=== PATIENT | male | born 1970 | race Caucasian/White ===

== ENCOUNTER 2016-10-10 18:16 | Emergency (ER) | payer SELFPAY ==
[~2016-10-10] VITALS: Ht 172.7 cm; Wt 68.0 kg
[~2016-10-10 18:16] MED LIST: Z.0.NO CURRENT MEDS
[2016-10-10 18:18] VITALS: BP 145/95; PULSE 71; RESP 16; TEMP 98.4; O2SAT 99
[2016-10-10] MEDS ORDERED: SODIUM CHLOR 0.9% 1000 ML INJ 1,000 ML IV SCH (18:48)
[2016-10-10] MEDS ORDERED: SODIUM CHLORIDE 0.9% FLUSH 10 ML FLUSH IV FLUSH PRN (19:00)
[2016-10-10] MEDS ORDERED: ALUMINUM/MAGNESIUM/SIMETH 30 ML CUP PO ONE (19:00)
[2016-10-10] MEDS ORDERED: LIDOCAINE VISCOUS 2% SOLN 15 ML UDC PO ONE (19:00)
[2016-10-10] MEDS ORDERED: PANTOPRAZOLE SODIUM 40 MG VIAL IVP ONE (19:00)
--- NOTE | 2016-10-10 19:02 | PD ---
HPI Chief Complaint: Abdominal Pain Time Seen by Provider: 18:33 Travel History International Travel<30 days: No Contact w/Intl Traveler<30days: No Traveled to known affect area: No History of Present Illness HPI 46-year-old male here for evaluation of abdominal pain/bloating/indigestion. Patient reports symptoms have been going on for last couple of months. States that his pain is mainly in his epigastric area and radiates up his chest. Pain is sometimes worse after eating. He denies history of cardiac disease. Patient also reports that for the past several months he has had intermittent right red blood per rectum. He denies rectal pain. No family history of cardiac disease. No known family history of colon cancer. He drinks about 4-6 beers daily. He does not smoke. [facility] Past Medical History Medical History: Denies Significant Hx Diminished Hearing: No Past Surgical History Tonsillectomy: Yes Social History Alcohol Use: Yes (6 BEERS/DAY) Tobacco Use: No Substance Use: No Allergies-Medications (Allergen,Severity, Reaction): Coded Allergies: Amoxicillin (Verified Allergy, Severe, HIVES, 10/10/16) Penicillin (Verified Allergy, Severe, HIVES, 10/10/16) Reported Meds & Prescriptions Reported Meds & Active Scripts Active No Active Prescriptions or Reported Medications Review of Systems Except as stated in HPI: all other systems reviewed are Neg Physical Exam Narrative GENERAL: Well-developed, well-nourished, comfortable, no acute distress. SKIN: Focused skin assessment warm/dry. HEAD: Atraumatic. Normocephalic. EYES: Pupils equal and round. No scleral icterus. No injection or drainage. ENT: Mucous membranes pink and moist. NECK: Trachea midline. No JVD. CARDIOVASCULAR: Regular rate and rhythm. No murmur appreciated. RESPIRATORY: No accessory muscle use. Clear to auscultation. Breath sounds equal bilaterally. GASTROINTESTINAL: Abdomen soft, nondistended. Mild epigastric tenderness without peritoneal signs. Rest of abdomen is soft and nontender. Normal bowel sounds. No hernias. RECTUM: No masses, no fissures, no hemorrhoids, heme- negative brown stool. MUSCULOSKELETAL: No obvious deformities. No clubbing. No cyanosis. No edema. NEUROLOGICAL: Awake and alert. No obvious cranial nerve deficits. Motor grossly within normal limits. Normal speech. PSYCHIATRIC: Appropriate mood and affect; insight and judgment normal. Data Data Last Documented VS Vital Signs Date Time Temp Pulse Resp B/P Pulse Ox O2 Delivery O2 Flow Rate FiO2 10/10/16 19:23 67 18 150/102 97 Room Air 10/10/16 18:18 98.4 Orders Urinalysis - C+S If Indicated (10/10/16 18:18) Complete Blood Count With Diff (10/10/16 18:48) Comprehensive Metabolic Panel (10/10/16 18:48) Lipase (10/10/16 18:48) Prothrombin Time / Inr (Pt) (10/10/16 18:48) Act Partial Throm Time (Ptt) (10/10/16 18:48) Ct Abd/Pel W Iv Contrast(Rout) (10/10/16 18:48) Iv Access Insert/Monitor (10/10/16 18:48) Ecg Monitoring (10/10/16 18:48) Oximetry (10/10/16 18:48) Pantoprazole Inj (Protonix Inj) (10/10/16 19:00) Sodium Chlor 0.9% 1000 Ml Inj (Ns 1000 M (10/10/16 18:48) Sodium Chloride 0.9% Flush (Ns Flush) (10/10/16 19:00) Electrocardiogram (10/10/16 18:48) Al-Mag Hy-Si 40-40-4 Mg/Ml Liq (Mag-Al P (10/10/16 19:00) Lidocaine 2% Viscous (Xylocaine 2% Visco (10/10/16 19:00) Ckmb (Isoenzyme) Profile (10/10/16 18:48) Troponin I (10/10/16 18:48) CKMB (10/10/16 19:05) CKMB% (10/10/16 19:05) Iohexol 350 Inj (Omnipaque 350 Inj) (10/10/16 19:49) Labs Laboratory Tests Test 10/10/16 10/10/16 19:05 20:50 White Blood Count 9.1 TH/MM3 Red Blood Count 4.36 MIL/MM3 Hemoglobin 14.2 GM/DL Hematocrit 40.6 % Mean Corpuscular Volume 93.1 FL Mean Corpuscular Hemoglobin 32.7 PG Mean Corpuscular Hemoglobin 35.1 % Concent Red Cell Distribution Width 12.0 % Platelet Count 206 TH/MM3 Mean Platelet Volume 8.1 FL Neutrophils (%) (Auto) 71.6 % Lymphocytes (%) (Auto) 18.7 % Monocytes (%) (Auto) 6.3 % Eosinophils (%) (Auto) 2.8 % Basophils (%) (Auto) 0.6 % Neutrophils # (Auto) 6.4 TH/MM3 Lymphocytes # (Auto) 1.7 TH/MM3 Monocytes # (Auto) 0.6 TH/MM3 Eosinophils # (Auto) 0.3 TH/MM3 Basophils # (Auto) 0.1 TH/MM3 CBC Comment DIFF FINAL Differential Comment Prothrombin Time 11.1 SEC Prothromb Time International 1.0 RATIO Ratio Activated Partial 25.2 SEC Thromboplast Time Sodium Level 142 MEQ/L Potassium Level 4.1 MEQ/L Chloride Level 105 MEQ/L Carbon Dioxide Level 26.8 MEQ/L Anion Gap 10 MEQ/L Blood Urea Nitrogen 16 MG/DL Creatinine 0.84 MG/DL Estimat Glomerular Filtration 98 ML/MIN Rate Random Glucose 92 MG/DL Calcium Level 8.6 MG/DL Total Bilirubin 0.6 MG/DL Aspartate Amino Transf 14 U/L (AST/SGOT) Alanine Aminotransferase 20 U/L (ALT/SGPT) Alkaline Phosphatase 60 U/L Total Creatine Kinase 103 U/L Creatine Kinase MB 1.1 NG/ML Troponin I LESS THAN 0.02 NG/ML Total Protein 7.0 GM/DL Albumin 3.9 GM/DL Lipase 159 U/L Urine Color YELLOW Urine Turbidity CLEAR Urine pH 6.5 Urine Specific [place] 1.030 Urine Protein NEG mg/dL Urine Glucose (UA) NEG mg/dL Urine Ketones NEG mg/dL Urine Occult Blood NEG Urine Nitrite NEG Urine Bilirubin NEG Urine Leukocyte Esterase NEG Urine Squamous Epithelial 0-5 /hpf Cells Microscopic Urinalysis Comment CULT NOT INDICATED MDM Medical Decision Making Medical Screen Exam Complete: Yes Emergency Medical Condition: Yes Interpretation(s) EKG: Sinus, rate 62, normal axis, normal intervals, no acute ischemic abnormality. Differential Diagnosis Gastritis, peptic ulcer disease, pancreatitis, hepatobiliary disease, ACS less likely, hemorrhoids, colon CA, GERD Narrative Course Vital signs show heart rate 71, blood pressure 145/95, pulse ox 99% on room air , oral temp of 98.4F. CBC is unremarkable. CMP is unremarkable. Lipase is 159. Cardiac enzymes are negative. UA is not suggestive of UTI. CT abdomen pelvis: CONCLUSION: 1. No acute abnormality. 2. Gas filled loops of nondilated large and small bowel. No inflammatory process observed. 3. Distended azygos and hemiazygos veins suggesting either stenosis of the IVC at the level of the hepatic confluence or stenosis of the SVC. Patient was made aware of all findings. He is resting comfortably. He was given Protonix and GI cocktail. There are no peritoneal signs on exam. This has been a long-standing issue for the patient. He is stable for discharge home with outpatient follow-up with a delivery rn this week. He was informed on when to return to the emergency department. He verbalizes understanding and agreement with plan. Diagnosis Primary Impression: Abdominal pain Qualified Code: R10.13 - Epigastric pain Referrals: Kyle Cole MD Urologist Tim Soria MD 3 days [place] Additional Instructions: Follow-up with delivery rn Dr. Soria, or a delivery rn of your choice this week. Follow-up with a primary care physician this week. Return to the emergency department for worsening symptoms or any other concerns. Scripts Pantoprazole (Protonix)40 Mg Tab40 Mg PO DAILY #30 TAB Ref 3 Prov:Renard Evans MD 10/10/16 Disposition: 01 DISCHARGE HOME Condition: Stable Renard Evans MD Oct 10, 2016 19:02
[2016-10-10 19:21] LABS: AUTOMATED NEUTROPHIL # 6.4 TH/MM3 (1.8-7.7); BASOPHIL # 0.1 TH/MM3 (0-0.2); BASOPHIL % 0.6 % (0.0-2.0); EOSINOPHIL # 0.3 TH/MM3 (0-0.4); EOSINOPHIL % 2.8 % (0.0-4.0); HEMATOCRIT 40.6 % (39.0-51.0); HEMO FLAGS DIFF FINAL; LYMPH % 18.7 % (9.0-44.0); LYMPHOCYTE # 1.7 TH/MM3 (1.0-4.8); MEAN CELL VOLUME 93.1 FL (80.0-100.0); MEAN CORPUSCULAR HEMOGLOBIN 32.7 PG (27.0-34.0); MEAN CORPUSCULAR HGB CONC 35.1 % (32.0-36.0); MONO % 6.3 % (0.0-8.0); NEUT % 71.6 % (16.0-70.0); PLATELET COUNT 206 TH/MM3 (150-450); RED BLOOD COUNT 4.36 MIL/MM3 (4.50-5.90); WHITE BLOOD COUNT 9.1 TH/MM3 (4.0-11.0)
[2016-10-10 19:23] VITALS: BP 150/102; PULSE 67; RESP 18; O2SAT 97
[2016-10-10 19:28] LABS: CHLORIDE 105 MEQ/L (98-107); POTASSIUM 4.1 MEQ/L (3.5-5.1); SODIUM (NA) 142 MEQ/L (136-145)
[2016-10-10 19:32] LABS: ANION GAP 10 MEQ/L (5-15); BICARBONATE 26.8 MEQ/L (21.0-32.0); BLOOD UREA NITROGEN 16 MG/DL (7-18)
[2016-10-10 19:33] LABS: APTT (PATIENT) 25.2 SEC (24.3-30.1); PROTHROMBIN TIME - PATIENT 11.1 SEC (9.8-11.6)
[2016-10-10 19:35] LABS: ALT (GPT) 20 U/L (12-78); AST (GOT) 14 U/L (15-37); GLOMERULAR FILTRATION RATE 98 ML/MIN (>89)
[2016-10-10 19:36] LABS: TOTAL BILIRUBIN ADULT 0.6 MG/DL (0.2-1.0)
[2016-10-10 19:37] LABS: CREATINE KINASE 103 U/L (39-308)
[2016-10-10 19:38] LABS: ALKALINE PHOSPHATASE 60 U/L (45-117)
[2016-10-10] MEDS ORDERED: IOHEXOL 350 MG/ML 10 ML VIAL (for RAD DIAG) IV ONE (19:49)
[2016-10-10 19:50] LABS: CKMB 1.1 NG/ML (0.5-3.6)
--- NOTE | 2016-10-10 20:15 | RADHPO ---
EXAM DATE/TIME: 10/10/2016 19:41 [facility] COMPARISON: No previous studies available for comparison. INDICATIONS : Middle abdominal pain and bloating for one month. IV CONTRAST: 100 cc Omnipaque 350 (iohexol) IV ORAL CONTRAST: No oral contrast ingested. RADIATION DOSE: 6.85 CTDIvol (mGy) MEDICAL HISTORY : None SURGICAL HISTORY : None. ENCOUNTER: Initial ACUITY: 1 month PAIN SCALE: 5/10 LOCATION: Bilateral abdomen TECHNIQUE: Volumetric scanning of the abdomen and pelvis was performed. Using automated exposure control and ad justment of the mA and/or kV according to patient size, radiation dose was kept as low as reasonably achievable to obtain optimal diagnostic quality images. FINDINGS: LOWER LUNGS: The visualized lower lungs are clear. LIVER: Homogeneous density without lesion. There is no dilation of the biliary tree. No calcified gallston es. SPLEEN: Normal size without lesion. PANCREAS: Within normal limits. KIDNEYS: Normal in size and shape. There is no mass, stone or hydronephrosis. Small simple cysts involving th e left kidney. ADRENAL GLANDS: Within normal limits. VASCULAR: There is engorgement of the azygos and hemiazygos veins. The IVC is fairly small in caliber at the le oskar of the hepatic confluence. No engorgement of the hepatic veins. The aorta is normal in caliber. BOWEL/MESENTERY: Gas distended loops of nondilated large and small bowel. No free air or free fluid. No inflammatory p rocess is observed. ABDOMINAL WALL: Within normal limits. RETROPERITONEUM: There is no lymphadenopathy. BLADDER: No wall thickening or mass. REPRODUCTIVE: Within normal limits. INGUINAL: There is no lymphadenopathy or hernia. MUSCULOSKELETAL: Within normal limits for patient age. CONCLUSION: 1. No acute abnormality. 2. Gas filled loops of nondilated large and small bowel. No inflammatory process observed. 3. Distended azygos and hemiazygos veins suggesting either stenosis of the IVC at the level of the he patic confluence or stenosis of the SVC. Josafat Augustin Jr., MD on October 10, 2016 at 20:08 Board Certified Radiologist. This report was verified electronically.
[2016-10-10 21:04] LABS: BLOOD, URINE NEG (NEG); GLUCOSE,URINE NEG (NEG); KETONE, URINE NEG (NEG); NITRITE,URINE NEG (NEG); PH, URINE 6.5 (5.0-8.5)
[2016-10-10 21:10] LABS: URINE COLOR YELLOW (YELLW/STRAW)
[2016-10-10 21:11] LABS: COMMENT (UR) CULT NOT INDICATED; CULTURE IF INDICATED CULT NOT INDICATED; SQUAMOUS EPITHELIAL CELL URINE 0-5 /hpf (0-5)
[2016-10-10] MEDS ORDERED: PROT40TA PO (21:34)
[2016-10-10 21:47] VITALS: BP 154/87
--- NOTE | 2016-10-11 13:44 | EKG ---
Date Performed: 10/10/2016 Time Performed: 18:55:18 PTAGE: 46 years EKG: Sinus rhythm Normal ECG NO PREVIOUS TRACING DOCTOR: Stanton Nguyen Interpretating Date/Time 10/11/2016 13:41:26
== END 2016-10-10 22:21 | disposition home or self-care (01) ==
LOC: PHED 18:16
DX: R10.13 Epigastric pain (principal); R14.0 Abdominal distension (gaseous); K62.5 Hemorrhage of anus and rectum
CPT/HCPCS: 74177; 80053; 81001; 82550; 82552; 83690; 84484; 85025; 85610; 85730; 93005; 96361; 96374; 99284; C9113; J7030; Q9967